=== PATIENT | male | born 1950 | race Caucasian/White ===

== ENCOUNTER 2016-05-21 07:49 | Outpatient (CLI) | payer BC ==
[2016-05-21 09:00] LABS: eGFR (African) > 60; eGFR (Non-African) > 60
[2016-05-21 16:01] LABS: VITAMIN D, 25-HYDROXY 35 ng/mL (30-100)
== END 2016-05-21 07:50 ==
LOC: LAB 07:49
PROVIDERS: ATTEND Physician Assistant
DX: E78.5 Hyperlipidemia, unspecified (principal); M10.9 Gout, unspecified; R42 Dizziness and giddiness
CPT/HCPCS: 36415; 80053; 80061; 82306; 82607; 84550

== ENCOUNTER 2019-02-09 07:55 | Emergency (ER) | payer BC ==
--- NOTE | 2019-02-09 08:01 | ED Physician Documentation ---
Nausea/Vomiting/Diarrhea - HISTORIAN Historian: patient - HPI Stated Complaint: nausea and weakness Chief Complaint: Nausea,Vomiting,Diarrhea Onset: hours (1) Duration: constant Last known Well Code/Unknown Code: Unknown Timing: sudden onset Context: other (recent ear infection and antibiotics ). denies: out of country travel, bad food, recent trauma Severity: moderate Further Comments: yes (He states he woke a hour or so ago with nausea relieved by laying on the floor and weakness (all over) he denies any one sided weakness. He has had some diarrhea in last 24 hours and no fever. He was started on Augmentin on Tuesday for otitis) - Associated Symptoms Vomiting: other ("couldnt puke anything up" ) Diarrhea: mild Abdominal Pain: none - ROS CONST: recent illness (otitis right ear ) CVS/RESP: denies: chest pain, shortness of breath, cough, dry cough, non- productive cough, productive cough, bloody cough GI/: other (diarrhea yesterday ) EYES/ENT: none NEURO/PSYCH: none - PAST HX Past History: other (gout) Immunizations: UTD Allergies/Adverse Reactions: Allergies Allergy/AdvReac Type Severity Reaction Status Date / Time No Known Drug Allergies Allergy Verified 02/09/19 08:10 - SOCIAL HX Smoking History: non-smoker Alcohol Use: none Drug Use: none - FAMILY HX Family History: none - VITAL SIGNS Vital Signs: Vital Signs Temp Pulse Resp BP Pulse Ox 97.2 F L 63 19 133/75 95 02/09/19 07:55 02/09/19 08:03 02/09/19 07:55 02/09/19 07:55 02/09/19 07:55 - REVIEWED ASSESSMENTS Nursing Assessment Reviewed: Yes Vitals Reviewed: Yes Progress - Progress Progress: 0839: discussed current findings with pt and spouse. He states he feels 90% better. Denies any dizziness and he is sitting up in the bed. He has no other complaints DG ED Results Lab/Radiology - Lab Results Lab Results: Lab Results 02/09/19 02/09/19 08:06 08:06 WBC 8.60 K/ul K/ul (4.00-12.00) RBC 4.91 M/ul M/ul (3.90-5.20) Hgb 15.5 g/dL g/dL (12.0-18.0) Hct 46.1 % % (37.0-53.0) MCV 94.0 fl fl (80.0-100.0) MCH 31.5 pg pg (28.0-34.0) MCHC 33.6 g/dL g/dL (30.0-36.0) RDW 11.1 % L % (11.3-14.3) Plt Count 260 K/mm3 K/mm3 (130-400) Neut % (Auto) 76.7 % % (39.0-79.0) Lymph % (Auto) 13.4 % L % (16.0-50.0) Haines % (Auto) 6.0 % % (0.0-11.0) Eos % (Auto) 3.4 % % (0.0-6.8) Baso % (Auto) 0.5 % % (0.0-1.5) Neut # (Auto) 6.6 # k/uL # k/uL (1.4-7.7) Lymph # (Auto) 1.2 # k/uL # k/uL (0.6-4.0) Haines # (Auto) 0.5 # k/uL # k/uL (0.0-0.9) Eos # (Auto) 0.3 # k/uL # k/uL (0.0-0.6) Baso # (Auto) 0.0 # k/uL # k/uL (0.0-0.5) Sodium 138 mmol/L mmol/L (137-145) Potassium 4.3 mmol/L mmol/L (3.5-5.1) Chloride 101 mmol/L mmol/L (98-107) Carbon Dioxide 29 mmol/L mmol/L (22-30) Anion Gap 12.3 BUN 10 mg/dL mg/dL (9-20) Creatinine 0.80 mg/dL mg/dL (0.66-1.25) Estimated Creat Clear 103 Est GFR ( Amer) > 60 (60 - ) Est GFR (Non-Af Amer) > 60 (60 - ) Glucose 128 mg/dL H mg/dL (74-106) Calcium 8.7 mg/dL mg/dL (8.4-10.2) Total Bilirubin 1.0 mg/dL mg/dL (0.2-1.3) AST 64 U/L H U/L (15-46) ALT 83 U/L H U/L (0-50) Alkaline Phosphatase 81 U/L U/L (38-126) Total Protein 7.1 g/dL g/dL (6.3-8.2) Albumin 4.2 g/dL g/dL (3.5-5.0) - Orders Orders: ED Orders Category Date Time Status Continuous EKG monitoring Q1H Care 02/09/19 08:03 Active IV Started NOW Care 02/09/19 08:03 Active CBC/PLATELET/DIFF Stat Lab 02/09/19 08:06 Completed CMP Stat Lab 02/09/19 08:06 Completed UA W/MICRO IF INDICATED Routine Lab 02/09/19 08:03 Ordered EKG WITH COMPARISON Stat Ther 02/09/19 Ordered Nausea Physical Exam - EXAM General Appearance: no acute distress, alert EENT: eye inspection normal, no signs of dehydration Neck: normal inspection Respiratory: no resp distress, chest non-tender, breath sounds normal CVS: reg rate & rhythm, heart sounds normal Abdomen: non-tender, abnml bowel sounds Back: non-tender Skin: warm/dry, normal color Extremities: non-tender, normal range of motion, no edema Neuro/Psych: oriented X3 Discharge Clincal Impression: Nausea Referrals: Adan Fuentes MD [Primary Care Provider] - 2 Days Comments: 1. Increase fluids 2. Change position slowly 3. Zofran 4 mg take 1 by mouth every 8 hours as needed for nausea 4. Notify PCP if not able to finish antibiotics 5. Return to ER for any increased concerns Condition: Stable Disposition: 01 HOME, SELF-CARE Decision to Admit: NO Date of Decison to Admit: 02/09/19 Decision Time: 08:43
[2019-02-09 08:09] LABS: BASOPHILS % 0.5 % (0.0-1.5); NEUTROPHILS # 6.6 # k/uL (1.4-7.7)
[2019-02-09 08:22] LABS: eGFR (Non-African) > 60
[2019-02-09 09:11] VITALS: BP 135/72
== END 2019-02-09 09:07 | disposition home or self-care (01) ==
LOC: ED 07:55
DX: R11.0 Nausea (principal)
CPT/HCPCS: 80053; 85025; 93005; 99282